=== PATIENT | male | born 1955 | race Caucasian/White ===

== ENCOUNTER 2022-12-16 12:29 | Day surgery (SDC) | payer MEDICARE, SELFPAY ==
--- NOTE | 2022-12-16 12:36 | HO.ANESPROP2 ---
[facility] Past Medical History Medical History (Updated 12/16/22 @ 13:04 by Destiny Rubio RN) A-fib Cardiomyopathy CHF (congestive heart failure) COPD (chronic obstructive pulmonary disease) Elevated cholesterol GERD (gastroesophageal reflux disease) History of cardioversion HTN (hypertension) Male circumcision Sleep apnea Family History Family history of problems with anesthesia: No Surgical History Surgical History (Updated 12/15/22 @ 14:20 by Sandi Dahl RN) H/O colonoscopy H/O shoulder surgery History of appendectomy History of Problems with Anesthesia: No Social History Social History Patient Tobacco Use Status: Former Tobacco user Tobacco use type: Cigarette Use of substances other than those prescribed or required for medical reasons: No Are you DNR?: No Advance Directives: No Advance Directives Information Provided: Yes Recently lost weight without trying: No Nutrition Risks: No Nutritional Risk Meds Allergies Allergy/AdvReac Type Severity Reaction Status Date / Time almond [ALMONDS] Allergy Intermediate MOUTH Verified 12/16/22 13:27 SWELLING Home Medications Medication Instructions Recorded Confirmed Last Taken Type albuterol sulfate 90 mcg/actuation 2 puff inhalation Q4H PRN wheezing 12/15/22 12/15/22 Unknown History breath activated powder inhaler (ProAir RespiClick) aspirin 81 mg tablet,delayed mg 12/15/22 Unknown History release atorvastatin 40 mg tablet 1 tab PO DAILY 12/15/22 12/15/22 Unknown History carvedilol 12.5 mg tablet 1 tab PO BID 12/15/22 12/15/22 Unknown History fluticasone fur. 100 mcg-umeclid 1 puff inhalation DAILY 12/15/22 12/15/22 Unknown History 62.5 mcg-vilant 25 mcg inhalat.powder (Trelegy Ellipta) folic acid 1 mg tablet 1 tab PO DAILY 12/15/22 12/15/22 Unknown History isosorbide mononitrate 60 mg 1 tab PO DAILY 12/15/22 12/15/22 Unknown History tablet,extended release 24 hr rivaroxaban 20 mg tablet (Xarelto) 1 tab PO DAILY 12/15/22 12/15/22 Unknown History torsemide 20 mg tablet 1 tab PO DAILY 12/15/22 12/15/22 Unknown History ferrous sulfate 325 mg (65 mg mg 12/16/22 12/16/22 Unknown History iron) tablet (Iron (ferrous sulfate)) sacubitril 97 mg-valsartan 103 mg 1 tab PO BID 12/16/22 12/16/22 Unknown History tablet (Entresto) Exam Exam Date and Time: December 16, 2022 1236 Airway Mallampati Class: II (Implant one tooth right) TM Dist: >3cm Neck ROM: Full Heart: rrr Lungs: cta Assessment and Plan Final Anesthetic Review Family History of Problems with Anesthesia: No History of Problems with Anesthesia: No NPO: Yes ASA Class: III Final Preanesthetic Review: No Changes in Pt Med Stat, Meds/Allgs Chart Reviewed and Consent Obtained/Reviewed Patient Risk: Intermediate Procedure Risk: Low Assessment/Block/Sedation in SS: Assess/Block/Sedation-SS Anesthetic Plan Anesthetic Plan: MAC: Disposition: Standard PACU
[2022-12-16 13:05] VITALS: BMI 29.3
[2022-12-16 13:08] VITALS: BP 133/53; PULSE 48; RESP 16; TEMP 36.8; O2SAT 96
[2022-12-16 13:26] VITALS: PULSE 42
[2022-12-16] MEDS: Lactated Ringers 1,000 ML 50 ML IVCONT (13:27)
--- NOTE | 2022-12-16 13:38 | MHC.SHP ---
Pre-Procedural Eval Section A Date of Service: 12/16/22 Section B Chief Complaint: screening Details of Present Illness: see H&P no changes Relevant Family History (Specify if Yes): No Relevant Social History: None Medical History: No relevant PMH History of Previous Operations: No relevant previous surgery Allergies: Allergies Allergy/AdvReac Type Severity Reaction Status Date / Time almond [ALMONDS] Allergy Intermediate MOUTH Verified 12/16/22 13:27 SWELLING Review of Systems Sugical H&P ROS: Negative: Constitution, Cardiovascular, Respiratory, Neurological, Psychiatric, Hem-Onc, Allergic/Immunologic, Gastrointestinal, Genitourinary, Musculoskeletal, Integumentary, Endocrine and Eyes/Ears/Nose/Throat Exam Surgical H&P Exam: Normal: HEENT, Normal: Heart, Normal: Lungs, Normal: Extremities, Normal: Abdomen, Normal: Skin and Normal: Neurological Plan Diagnosis/Plan: Unchanged I have reviewed the history and physical and performed a pertinent physical examination on my patient. No changes have occurred unless specified. Time Spent With Patient Time: Total time managing care of this patient today ____ minutes.
[2022-12-16 14:41] VITALS: BP 121/58; PULSE 50; RESP 14; TEMP 36.2; O2SAT 96
[2022-12-16 15:01] VITALS: BP 120/55; PULSE 54; RESP 18; TEMP 36.2; O2SAT 95
--- NOTE | 2022-12-17 01:56 | OP_ITS ---
SURGEON: Rafael Holt MD INDICATIONS: Colon cancer screening and prior history of colon polyps. PREOPERATIVE DIAGNOSIS: POSTOPERATIVE DIAGNOSIS: PROCEDURE PERFORMED: ESTIMATED BLOOD LOSS: COMPLICATIONS: ANESTHESIA: ASSISTANTS: SPECIMENS: PROCEDURE: Colonoscopy to the terminal ileum with snare polypectomy, biopsy, and placement of endoscopic clip. MEDICATIONS: Monitored anesthesia care. PROCEDURE DESCRIPTION: A history and physical performed. The procedure was performed on 12/16/2022. The risks and benefits of the procedure were explained to the patient. Informed consent was obtained. The patient was placed in the left lateral decubitus position. A digital rectal exam was performed and was found to be normal. The Olympus pediatric video colonoscope was introduced into the rectum and advanced to the cecum without difficulty. The cecum was identified by transillumination, palpation, and identification of ileocecal valve. Examination was performed. The scope was removed. He tolerated the procedure well and was taken to recovery are in stable condition. FINDINGS: The terminal ileum was normal. In the cecum was a 15 mm polyp, which was removed in piecemeal fashion with a snare. A single endoscopic clip was placed to close the mucosal defect. There was no bleeding at the termination of the procedure. Recovery of the polyp required a Araiza net with removal and reinsertion of the colonoscope making the procedure extended and difficult. The 2nd polyp, less than 5 mm, was identified and removed with biopsy forceps. This was located at 60 cm. No other polyps were identified. There was some liquid stool coating the mucosa. This was washed and suctioned. There was moderate sigmoid diverticulosis. Retroflexed examination showed moderate-sized internal hemorrhoids. IMPRESSION: 1. Colon polyps. 2. Extended/difficult procedure. MD NIC Salcido/ARTHUR / [id number] MTDD
== END 2022-12-16 15:50 | disposition home or self-care (01) ==
PROVIDERS: PCP Internal Medicine; Visit Provider Internal Medicine Gastroenterology
PROC: 0DJD8ZZ Inspection of Lower Intestinal Tract, Via Natural or Artificial Opening Endoscopic (ICD-10-PCS; CPT 45378; principal; 2022-12-16 13:40)
DX: Z12.11 Encounter for screening for malignant neoplasm of colon (principal); Z86.010 Personal history of colon polyps; D12.0 Benign neoplasm of cecum; D12.4 Benign neoplasm of descending colon; K57.30 Diverticulosis of large intestine without perforation or abscess without bleeding; K64.8 Other hemorrhoids; K21.9 Gastro-esophageal reflux disease without esophagitis; I11.0 Hypertensive heart disease with heart failure; I50.9 Heart failure, unspecified; E78.00 Pure hypercholesterolemia, unspecified; I48.91 Unspecified atrial fibrillation; I42.9 Cardiomyopathy, unspecified; G47.30 Sleep apnea, unspecified; J44.9 Chronic obstructive pulmonary disease, unspecified; Z79.01 Long term (current) use of anticoagulants; Z79.51 Long term (current) use of inhaled steroids; Z79.82 Long term (current) use of aspirin; Z79.899 Other long term (current) drug therapy; Z87.891 Personal history of nicotine dependence
CPT/HCPCS: 45385; 45380; 88305

== ENCOUNTER 2023-06-29 09:52 | Outpatient (REF) | payer MEDICARE, SELFPAY ==
--- NOTE | ~2023-06-29 | CT_ITS ---
EXAMINATION: CT CHEST SCREENING CLINICAL INFORMATION: Former smoker; 30 pack-year smoking history. COMPARISON: Prior chest CT examinations, most recently 11/23/2019. TECHNIQUE: Multidetector volumetric CT imaging of the chest is performed without contrast using low dose technique. Additional 2D coronal and sagittal reformatted images and axial 3D maximum intensity projection (MIP) images are generated on the CT workstation. This CT examination was performed using dose optimization techniques as appropriate, variously including the following: *Automated exposure control *Adjustment of mA and/or kV according to patient size (this includes techniques or standardized protocols for targeted exams where dose is matched to indication/reason for exam; i.e. extremities or head) *Use of iterative reconstruction technique DLP: 63 mGy-cm FINDINGS: LUNGS: There are scattered benign, calcified granulomas. No significant noncalcified nodule is seen. There are diffuse paraseptal emphysematous changes. There is a mild mosaic attenuation pattern. A tiny focus of scar/subsegmental atelectasis is newly seen at the anterior right apex, without associated focal airway obstruction. No small airway thickening is seen. The central airways appear patent. MEDIASTINUM: The thyroid is unremarkable. There is no thoracic aortic aneurysm. There are mild atherosclerotic calcifications of the great vessel origins and thoracic aorta. No mediastinal or hilar lymphadenopathy is seen. CORONARY ARTERY CALCIFICATION: Moderately severe. PLEURA: There is no pleural effusion. No pleural mass or thickening. AXILLA: No lymphadenopathy. There is mild bilateral gynecomastia. UPPER ABDOMEN: Unremarkable OSSEOUS STRUCTURES: Unremarkable. CT/CT lung screening IMPRESSION: 1. No noncalcified nodule, mass, infiltrate or groundglass opacity is seen. 2. There are diffuse emphysematous changes. 3. There is a mosaic attenuation pattern, which may be associated with small airways or small vessels disease secondary to an infectious or inflammatory etiology. 4. There is a tiny focus of scar/subsegmental atelectasis at the anterior right apex, which is new from prior. Recommend continued attention on imaging follow-up. 5. No thoracic lymphadenopathy or pleural effusion is seen. 6. Osseous structures are unremarkable. 7. There is mild bilateral gynecomastia. ASSESSMENT: Lung-RADS category 1: Negative RECOMMENDATION: Routine annual low-dose CT screening in 12 months.
== END 2023-06-29 09:53 | disposition home or self-care (01) ==
LOC: HO.CT 09:52
PROVIDERS: Visit Provider Physician Assistant Medical
DX: Z12.2 Encounter for screening for malignant neoplasm of respiratory organs (principal); Z87.891 Personal history of nicotine dependence
CPT/HCPCS: 71271